=== PATIENT | male | born 1955 | race Two or more races ===

== ENCOUNTER 2020-10-06 11:41 | Emergency (ER) | payer MEDICARE, OTHER ==
[~2020-10-06] VITALS: Ht 177.8 cm; Wt 113.4 kg
[2020-10-06] MEDS ORDERED: IOHEXOL 300 MG/ML 100ML BOTTLE IJ ONE (12:05)
[2020-10-06 12:30] LABS: Basophils # (auto) 0.1 10 ^3/uL (0-0.2); Basophils % (auto) 0.3 % (0.0-2.0); Eosinophils # (auto) 0.5 10 ^3/uL (0-0.8); Eosinophils % (auto) 2.6 % (0.0-7.0); Hematocrit 41.5 % (41.0-53.0); Hemoglobin 13.9 g/dL (13.5-17.5); Lymphocytes # (auto) 4.2 10 ^3/uL (0.4-5.4); Lymphocytes % (auto) 21.8 % (10.0-50.0); Mean Corpuscular Hemoglobin 30.2 pg (28.0-32.0); Mean Corpuscular Hgb Conc. 33.6 g/dL (32.0-36.0); Mean Corpuscular Volume 89.8 fL (80.0-100.0); Monocytes # (auto) 0.9 10 ^3/uL (0-1.3); Monocytes % (auto) 4.7 % (0.0-12.0); Neutrophils # (auto) 13.8 10 ^3/uL (1.6-8.6); Neutrophils % (auto) 70.6 % (37.0-80.0); Nucleated Red Blood Cells % 0.2 %; Platelet Count (auto) 330 10^3/uL (140-450); Red Blood Cells 4.62 10^6/uL (4.5-5.90); Red Cell Distribution Width 13.5 % (11.8-14.3); White Blood Cell 19.5 10^3/uL (4.4-10.8)
[2020-10-06] MEDS ORDERED: ONDANSETRON HCL 4 MG/2 ML VIAL IV ONE (12:30)
[2020-10-06] MEDS ORDERED: MORPHINE SULFATE 4 MG/ML SYR/VIAL IV ONE (12:30)
[2020-10-06 12:47] LABS: Albumin 3.7 g/dL (3.4-5.0); Potassium 3.4 mmol/L (3.5-5.1)
[2020-10-06 12:50] LABS: BUN/Creatinine Ratio 12.3; Bilirubin, Total 0.6 mg/dL (0.2-1.0); Total Protein 7.1 g/dL (6.4-8.2)
[2020-10-06] MEDS ORDERED: HYDROmorphone HCL 2 MG/ML VL ONE (13:03)
[2020-10-06] MEDS ORDERED: HYDROmorphone HCL 2 MG/ML VL IV ONE (13:15)
[2020-10-06 14:10] VITALS: BP 93/57
== END 2020-10-06 14:25 | disposition short-term general hospital (02) ==
LOC: ER 11:41 → EDBD 11:41 → ER 14:25
DX: S52.511A Displaced fracture of right radial styloid process, initial encounter for closed fracture (principal); S32.019A Unspecified fracture of first lumbar vertebra, initial encounter for closed fracture; S32.029A Unspecified fracture of second lumbar vertebra, initial encounter for closed fracture; K57.92 Diverticulitis of intestine, part unspecified, without perforation or abscess without bleeding; R58 Hemorrhage, not elsewhere classified; E11.9 Type 2 diabetes mellitus without complications; I10 Essential (primary) hypertension; V43.52XA Car driver injured in collision with other type car in traffic accident, initial encounter; Y93.89 Activity, other specified; Y92.488 Other paved roadways as the place of occurrence of the external cause; Y99.8 Other external cause status
CPT/HCPCS: 29125; 36415; 70450; 71260; 72125; 73090; 73110; 74177; 80053; 85025; 86850; 86900; 86901; 93005; 96374; 96375; 99285; J1170; J2270; J2405; Q9967; 99291

== ENCOUNTER 2025-07-13 09:20 | Inpatient (IN) | payer MEDICARE ==
[~2025-07-13] VITALS: Ht 177.8 cm; Wt 83.5 kg
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
[2025-07-13 09:39] VITALS: PULSE 86; RESP 15; O2SAT 95
[2025-07-13] MEDS: MORPHINE SULFATE INJ 2 MG/ml SYRG IV ONE (09:53)
[2025-07-13] MEDS: ONDANSETRON HCL 4 MG/2 ML VIAL IV ONE (09:58)
--- NOTE | 2025-07-13 10:14 | DVH ---
INDICATION: sob TECHNIQUE: Frontal view of the chest. COMPARISON: None FINDINGS: . The heart and mediastinal contours are grossly unremarkable. There is no evidence of pleural disea se. The lungs are clear. The bony structures of the chest are intact without fracture. IMPRESSION: 1. No evidence of acute disease.
--- NOTE | 2025-07-13 10:15 | DVH ---
EXAM: XY L HUMERUS XRAY CLINICAL INDICATION: fx TECHNIQUE: XY L HUMERUS XRAY, 3v Comparison: L FOREARM XRAY on DOS: 10/06/20 FINDINGS/IMPRESSION: Possible displaced pathologic fracture mid left humerus. MRI with IV contrast recommended.
[2025-07-13 10:22] LABS: Hematocrit 40.0 % (41.0-53.0); Hemoglobin 14.0 g/dL (13.5-17.5); Mean Corpuscular Hemoglobin 33.0 pg (28.0-32.0); Mean Corpuscular Volume 94.0 fL (80.0-100.0); Nucleated Red Blood Cells % 0.1 %
[2025-07-13 10:31] LABS: Chloride 104 mmol/L (98-107); Sodium 140 mmol/L (136-145)
[2025-07-13 10:32] LABS: Anion Gap 11 (5-15); Carbon Dioxide 25 mmol/L (20-31)
[2025-07-13 10:33] LABS: Calcium 9.0 mg/dL (8.7-10.4)
[2025-07-13 10:36] LABS: Potassium 3.4 mmol/L (3.5-5.1)
[2025-07-13 10:37] LABS: BUN/Creatinine Ratio 7.8 (10.0-20.0)
[2025-07-13 10:38] LABS: Blood Urea Nitrogen 7 mg/dL (9-23); Glucose 229 mg/dL (74-106)
[2025-07-13] MEDS ORDERED: FAMO-12 PO (12:05)
[2025-07-13] MEDS ORDERED: ATOR10TA52 PO (12:05)
[2025-07-13] MEDS ORDERED: GLIP10TA9 PO (12:05)
[2025-07-13] MEDS ORDERED: ENAL1TAB48 PO (12:05)
[2025-07-13] MEDS ORDERED: DOCUSATE SOD 100 MG CAP PO PRN (12:15)
[2025-07-13] MEDS ORDERED: TEMAZEPAM 15 MG CAP PO PRN (12:15)
[2025-07-13] MEDS ORDERED: DEXTROSE (50%) 50ML SYRG IV PRN (12:15)
[2025-07-13] MEDS ORDERED: ACETAMINOPHEN 325 MG TAB PO PRN (12:15)
[2025-07-13] MEDS: SODIUM CHLORIDE 0.9% 1,000 ML IV SCH (12:33)
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
[2025-07-13 14:44] VITALS: BP 135/89; PULSE 82; RESP 18; TEMP 98.2; O2SAT 94
[2025-07-13] MEDS ORDERED: CHOL20002 PO (15:03)
[2025-07-13] MEDS ORDERED: IBUP-1455 PO (15:12)
--- NOTE | 2025-07-13 15:36 | DVHSR ---
APPROVED REPORT EXAM: LIMITED Two-dimensional and M-mode echocardiogram with Doppler and color Doppler. INDICATION Pre-Op RISK FACTORS Height: 70, Weight: 190 DIMENSIONS LVDd4.1 (3.8-5.7cm)LA (2D) (1.9-4.0cm)Aortic Root (2.0-3.7cm) LVDs2.9 (2.5-4.0cm)LA (MM) (1.9-4.0cm)Aortic Cusp Exc (1.5-2.0cm) EF (%) 57.0 (55-70%)Rt. Atrium (1.9-4.0cm)Asc. Aorta cm Mitral Valve MitralMitral Stenosis E wave0.75m/sMV Mean GR.mmHg A wave1.04m/sMV Peak GR.mmHg E/A ratio0.72D MVAcm2 DECEL [id number] 1/2 [id number] IVRTmsDop MVA3.77cm2 Aortic Valve Aortic ValveAortic Stenosis V11.04m/Rosalio Mean GR.4mmHg V21.42m/Rosalio Peak GR.8mmHg Other Information Technically limited study due to body habitus and patient position. Patient was unable to turn due t o broken left arm. Patient laying on his back sitting straight up during exam. Conclusion lvef 50-55% by visual estimate mild LVH RV not seen mild left atirum enlarged
[2025-07-13] MEDS: ONDANSETRON HCL 4 MG/2 ML VIAL IV PRN (16:03)
[2025-07-13] MEDS: MORPHINE SULFATE INJ 2 MG/ml SYRG IV PRN (16:03)
[2025-07-13 17:00] VITALS: BP 156/102; PULSE 81; RESP 24; TEMP 97.3; O2SAT 95
[2025-07-13] MEDS: InsuLIN REG 1unit/0.01ml Soln (100units/ml) SC SCH ×2 (17:00→21:00)
[2025-07-13] MEDS: ACCU-CHEK COMFORT CURVE STRIP VI SCH (17:00)
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
[2025-07-13 21:00] VITALS: BP 137/92; PULSE 79; RESP 18; TEMP 97.5; O2SAT 96
[2025-07-13] MEDS: ATORVASTATIN 20 MG TAB PO SCH (21:05)
[2025-07-13] MEDS: FAMOTIDINE 20 MG TAB PO SCH (21:05)
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
[2025-07-14] VITALS (8 sets, daily range): BP systolic 121–162; BP diastolic 67–102; PULSE 61–110; RESP 16–20; TEMP 97–98.5; O2SAT 92–96
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
[2025-07-14] MEDS: glipiZIDE 5 MG TAB PO SCH (06:19)
--- NOTE | 2025-07-14 08:04 | ECG ---
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
[2025-07-14 08:55] LABS: Hematocrit 39.6 % (41.0-53.0); Hemoglobin 13.9 g/dL (13.5-17.5); Mean Corpuscular Hemoglobin 33.3 pg (28.0-32.0); Mean Corpuscular Volume 94.9 fL (80.0-100.0); Nucleated Red Blood Cells % 0.1 %
[2025-07-14 09:07] LABS: Albumin 4.3 g/dL (3.2-4.8); Anion Gap 9 (5-15); BUN/Creatinine Ratio 8.4 (10.0-20.0); Bilirubin, Total 1.0 mg/dL (0.2-1.0); Calcium 9.2 mg/dL (8.7-10.4); Carbon Dioxide 26 mmol/L (20-31); Chloride 105 mmol/L (98-107); Sodium 140 mmol/L (136-145); Total Protein 6.3 g/dL (5.7-8.2)
[2025-07-14 09:10] LABS: Alanine Aminotransferase 83 U/L (7-40); Alkaline Phosphatase 146 U/L (46-116); Blood Urea Nitrogen 7 mg/dL (9-23); Glucose 161 mg/dL (74-106); Potassium 3.4 mmol/L (3.5-5.1)
[2025-07-14] MEDS: ENOXAPARIN SOD 40 MG/0.4 ML SYRINGE SC SCH (09:56)
[2025-07-14] MEDS: ENALAPRIL MALEATE 10 MG TAB PO SCH (10:00)
[2025-07-14] MEDS ORDERED: HYDR-4902 PO (13:48)
[2025-07-14] MEDS: HYDROcodone-ACET 5/325MG TAB PO PRN (17:09)
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
[2025-07-15] VITALS (8 sets, daily range): BP systolic 124–157; BP diastolic 87–99; PULSE 104–113; RESP 16–20; TEMP 97.7–98.5; O2SAT 93–96
[2025-07-15] MEDS: hydrALAZINE HCL 20 MG/ML VL IV PRN (01:15)
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
--- NOTE | 2025-07-15 10:15 | DVHDS2 ---
Discharge Summary Date of Admission Jul 13, 2025 at 12:01 Date of Discharge: Jul 14, 2025 Labs/Diagnostic Data: Laboratory Results Test 07/15/25 05:57 07/14/25 08:27 07/13/25 09:53 POC Glucose 218 mg/dl (70-106) White Blood Count 12.4 10^3/uL (4.4-10.8) Red Blood Count 4.17 10^6/uL (4.5-5.90) Hemoglobin 13.9 g/dL (13.5-17.5) Hematocrit 39.6 % (41.0-53.0) Mean Corpuscular Volume 94.9 fL (80.0-100.0) Mean Corpuscular Hemoglobin 33.3 pg (28.0-32.0) Mean Corpuscular Hemoglobin Concent 35.0 g/dL (32.0-36.0) Red Cell Distribution Width 13.5 % (11.8-14.3) Platelet Count 178 10^3/uL (140-450) Mean Platelet Volume 8.6 fL (6.9-10.8) Neutrophils (%) (Auto) 79.5 % (37.0-80.0) Lymphocytes (%) (Auto) 12.9 % (10.0-50.0) Monocytes (%) (Auto) 4.8 % (0.0-12.0) Eosinophils (%) (Auto) 2.6 % (0.0-7.0) Basophils (%) (Auto) 0.2 % (0.0-2.0) Neutrophils # (Auto) 9.8 10 ^3/uL (1.6-8.6) Lymphocytes # (Auto) 1.6 10 ^3/uL (0.4-5.4) Monocytes # (Auto) 0.6 10 ^3/uL (0-1.3) Eosinophils # (Auto) 0.3 10 ^3/uL (0-0.8) Basophils # (Auto) 0 10 ^3/uL (0-0.2) Nucleated Red Blood Cells 0.1 % Sodium Level 140 mmol/L (136-145) Potassium Level 3.4 mmol/L (3.5-5.1) Chloride Level 105 mmol/L (98-107) Carbon Dioxide Level 26 mmol/L (20-31) Anion Gap 9 (5-15) Blood Urea Nitrogen 7 mg/dL (9-23) Creatinine 0.83 mg/dL (0.700-1.30) Glomerular Filtration Rate Calc 93 mL/min (>90) BUN/Creatinine Ratio 8.4 (10.0-20.0) Serum Glucose 161 mg/dL (74-106) Calcium Level 9.2 mg/dL (8.7-10.4) Total Bilirubin 1.0 mg/dL (0.2-1.0) Aspartate Amino Transferase (AST) 40 U/L (13-40) Alanine Aminotransferase (ALT) 83 U/L (7-40) Alkaline Phosphatase 146 U/L (46-116) Total Protein 6.3 g/dL (5.7-8.2) Albumin 4.3 g/dL (3.2-4.8) Troponin I High Sensitivity 6 ng/L (</=54) Other Laboratory Tests 07/14/25 08:27 Final Diagnosis/Problems List left humerus pathological fx Discharge Disposition: Home Discharge Instruct/Medications Diet: Consistent carbohydrate Activity: See Comment Activity comment: left arm in sling Follow Up/Referral: f/u [facility] orthopedic surgeon Scheduled Atorvastatin Calcium (Atorvastatin Calcium), 1 TAB PO DAILY, (Reported) Cholecalciferol (Vitamin D3), 1 CAP PO DAILY, (Reported) Enalapril Maleate (Enalapril Maleate), 1 TAB PO DAILY, (Reported) Famotidine (Famotidine), 1 TAB PO BID, (Reported) Glipizide (Glipizide), 1 TAB PO QAM, (Reported) Ibuprofen Micronized (Ibuprofen), 1 TAB PO TID, (Reported) Scheduled PRN Hydrocodone-Acetaminophen (Hydrocodone Bitartrate/AC 5-325 mg), 1 TAB PO Q8HP PRN Discharge Statement: "Patient was advised to return to the ER or call 911 if any headaches, dizziness, shortness of breath, chest pain, abdominal pain, bleeding, fevers, or worsening of medical condition. Patient was counseled about treatment plan, medications, possible side effects, patientverbalized understanding. All questions were answered to the best of my ability. This discharge took greater then 30 minutes in planning, reviewing documentation, counseling the patient, and discussing with other team members." ASSESSMENT ASSESSMENT Assessment left humerus pathological fx CHARLA AGUSTIN NP Jul 15, 2025 10:15
--- NOTE | 2025-07-15 17:20 | DVH ---
CT LEFT LOWER EXTREMITY. HISTORY: Left humerous fracture COMPARISON: XY L HUMERUS XRAY on DOS: 07/13/25, L FOREARM XRAY on DOS: 10/06/20, R WRIST COMPLETE XRAY on DOS: 10/06/20 TECHNIQUE: Multiple axial CT images of the left lower extremity were obtained without intravenous con trast. Coronal and sagittal bone and soft tissue reformations were also obtained. One or more of the following radiation dose reduction techniques were used for this examination: automated exposure con trol, adjustment of the mA and/or kV according to patient size, use of iterative reconstruction techn ique. FINDINGS: Comminuted angulated but minimally displaced fracture mid left humerus. Subcutaneous edema Arterial detail is suboptimal for excluding dissection. IMPRESSION: 1. Comminuted minimally angled fracture mid left humerus.
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
[2025-07-16] VITALS (8 sets, daily range): BP systolic 118–155; BP diastolic 82–101; PULSE 98–118; RESP 16–20; TEMP 98–98.4; O2SAT 93–98
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
[2025-07-16] MEDS: EZ PAQUE SUSP 12OZ BTL ONE (12:30)
[2025-07-16] MEDS: GADOTERATE MEG 10 MMOL/20ml INJ (0.5MMOL/ml) IV ONE (12:31)
--- NOTE | 2025-07-16 15:09 | DVH ---
CLINICAL INFORMATION: Lytic lesion. Pathologic fracture. TECHNIQUE: Following the intravenous administration of 25.5 mCi technetium 99m-MDP, 3-phase bone sca n was performed. Immediate flow images of the left humerus were obtained in the anterior and posterio r projections. Blood pool images and 3 hour delayed images of the left humerus were also obtained in the anterior and posterior projections. COMPARISON: CT dated 07/15/2025 and radiographs of the left humerus dated 07/13/2025. FINDINGS: No asymmetric increased uptake is seen associated with the fracture in the left mid humeral diaphysis is seen on the immediate flow images or blood pool images. Delayed images demonstrate expe cted uptake adjacent to the fracture site associated secondary to the fracture. There is also promine nt uptake in the right humeral head and adjacent right acromion, which is nonspecific, may be due to arthritic changes. There is a focal area of increased uptake in a right anterior 1st rib near the cos tochondral junction on the delayed images. IMPRESSION: 1. There is focal uptake in the left mid humerus adjacent to the fracture site on the delayed images only with no asymmetric increased activity in this location on the immediate flow or blood pool image s. The fracture is consistent with a pathologic fracture based on the lytic lesion, suspected maligna ncy seen on CT and radiographs adjacent to the location of the fracture site. 2. Areas of increased activity on the delayed images are seen involving an anterior right rib as well as the right humeral head and right acromion, of uncertain significance, with the increased uptake i n the right shoulder possibly due to arthritic changes, and the right anterior rib uptake possibly se en with costochondritis or rib fracture. Other etiologies, including malignancy can not be excluded i n these locations. No obvious lesion in the right shoulder visualized on recent chest radiograph. Cor relate with clinical findings.
[2025-07-16] MEDS: HYDROmorphone HCL 2 MG/ML VL/or syr IV ONE (15:17)
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
[2025-07-17] VITALS (9 sets, daily range): BP systolic 138–152; BP diastolic 86–108; PULSE 103–112; RESP 18–20; TEMP 97.9–98.2; O2SAT 92–97
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
[2025-07-17 09:39] LABS: Chloride 102 mmol/L (98-107); Sodium 141 mmol/L (136-145)
[2025-07-17 09:40] LABS: Anion Gap 8 (5-15); Calcium 9.5 mg/dL (8.7-10.4); Carbon Dioxide 31 mmol/L (20-31)
[2025-07-17 09:45] LABS: BUN/Creatinine Ratio 10.6 (10.0-20.0); Blood Urea Nitrogen 10 mg/dL (9-23)
[2025-07-17] MEDS: OMNIPAQUE 12mg/ml 500ml ORAL SOLUTION PO ONE (09:50)
[2025-07-17 09:54] LABS: Glucose 175 mg/dL (74-106); Potassium 3.4 mmol/L (3.5-5.1)
[2025-07-17] MEDS: IOHEXOL 300 MG/ML 100ML BOTTLE IJ ONE (12:19)
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
[2025-07-18] VITALS (7 sets, daily range): BP systolic 129–169; BP diastolic 85–102; PULSE 100–108; RESP 17–20; TEMP 97.5–98.1; O2SAT 93–95
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
[2025-07-19] VITALS (7 sets, daily range): BP systolic 132–157; BP diastolic 89–111; PULSE 63–107; RESP 17–20; TEMP 97.7–98.4; O2SAT 94–98
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
[2025-07-19 11:07] LABS: Prostate Specific Antigen <0.1 ng/mL (0.0-4.0)
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
[2025-07-19 16:01] LABS: Hematocrit 40.6 % (41.0-53.0); Hemoglobin 14.0 g/dL (13.5-17.5); Mean Corpuscular Hemoglobin 32.6 pg (28.0-32.0); Mean Corpuscular Volume 94.6 fL (80.0-100.0); Nucleated Red Blood Cells % 0.1 %
[2025-07-19 16:11] LABS: Albumin 4.4 g/dL (3.2-4.8); Anion Gap 8 (5-15); BUN/Creatinine Ratio 11.3 (10.0-20.0); Bilirubin, Total 1.1 mg/dL (0.2-1.0); Blood Urea Nitrogen 11 mg/dL (9-23); Calcium 9.4 mg/dL (8.7-10.4); Carbon Dioxide 27 mmol/L (20-31); Chloride 101 mmol/L (98-107); Magnesium 2.1 mg/dL (1.6-2.6); Potassium 4.0 mmol/L (3.5-5.1); Total Protein 6.4 g/dL (5.7-8.2)
[2025-07-19 16:12] LABS: Alanine Aminotransferase 82 U/L (7-40); Alkaline Phosphatase 137 U/L (46-116); Glucose 262 mg/dL (74-106); Sodium 136 mmol/L (136-145)
[2025-07-20] VITALS (7 sets, daily range): BP systolic 133–156; BP diastolic 78–99; PULSE 97–104; RESP 17–20; TEMP 97.7–98.8; O2SAT 94–98
[2025-07-20 08:07] LABS: Prostate Specific Antigen <0.1 ng/mL (0.0-4.0)
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
[2025-07-20 14:38] LABS: Hematocrit 39.2 % (41.0-53.0); Hemoglobin 13.7 g/dL (13.5-17.5); Mean Corpuscular Hemoglobin 32.9 pg (28.0-32.0); Mean Corpuscular Volume 94.4 fL (80.0-100.0); Nucleated Red Blood Cells % 0.0 %
[2025-07-20 14:55] LABS: Albumin 4.2 g/dL (3.2-4.8); Anion Gap 7 (5-15); BUN/Creatinine Ratio 9.6 (10.0-20.0); Blood Urea Nitrogen 11 mg/dL (9-23); Calcium 9.2 mg/dL (8.7-10.4); Carbon Dioxide 29 mmol/L (20-31); Chloride 102 mmol/L (98-107); Potassium 4.1 mmol/L (3.5-5.1); Sodium 138 mmol/L (136-145); Total Protein 6.1 g/dL (5.7-8.2)
[2025-07-20 14:56] LABS: Alanine Aminotransferase 75 U/L (7-40); Alkaline Phosphatase 129 U/L (46-116); Bilirubin, Total 1.1 mg/dL (0.2-1.0); Glucose 248 mg/dL (74-106)
[2025-07-20] MEDS: PIPERACILLIN-TAZOB 3.375GM 100 ML IV SCH (15:27)
[2025-07-21] VITALS (7 sets, daily range): BP systolic 111–153; BP diastolic 76–92; PULSE 94–104; RESP 16–18; TEMP 97.7–98.4; O2SAT 93–96
[2025-07-21 08:07] LABS: Immunoglobulin A 447 mg/dL (61-437); Immunoglobulin G, Serum 537 mg/dL (603-1613); Immunoglobulin M 11 mg/dL (15-143)
[2025-07-21 11:07] LABS: Kappa Lite Chain Free Serum 8.1 mg/L (3.3-19.4)
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
[2025-07-22] VITALS (7 sets, daily range): BP systolic 104–144; BP diastolic 77–95; PULSE 78–108; RESP 16–20; TEMP 97.8–98.4; O2SAT 94–97
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
[2025-07-22] MEDS: HYDROcodone-ACET 5/325MG TAB PO PRN (22:35)
[2025-07-23] VITALS (8 sets, daily range): BP systolic 125–143; BP diastolic 90–97; PULSE 99–107; RESP 18–20; TEMP 97.8–98.2; O2SAT 94–97
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
[2025-07-24] VITALS (8 sets, daily range): BP systolic 116–138; BP diastolic 77–91; PULSE 96–111; RESP 17–18; TEMP 97.6–98.8; O2SAT 94–99
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
[2025-07-25] VITALS (7 sets, daily range): BP systolic 115–146; BP diastolic 79–89; PULSE 95–111; RESP 17–20; TEMP 97.5–98.7; O2SAT 93–96
[2025-07-25 12:11] LABS: Hematocrit 40.8 % (41.0-53.0); Hemoglobin 14.0 g/dL (13.5-17.5); Mean Corpuscular Hemoglobin 32.7 pg (28.0-32.0); Mean Corpuscular Volume 95.2 fL (80.0-100.0); Nucleated Red Blood Cells % 0.0 %
[2025-07-25 12:29] LABS: Albumin 4.4 g/dL (3.2-4.8); Anion Gap 8 (5-15); BUN/Creatinine Ratio 13.3 (10.0-20.0); Bilirubin, Total 1.0 mg/dL (0.2-1.0); Blood Urea Nitrogen 14 mg/dL (9-23); Calcium 9.9 mg/dL (8.7-10.4); Carbon Dioxide 28 mmol/L (20-31); Chloride 102 mmol/L (98-107); Potassium 4.0 mmol/L (3.5-5.1); Sodium 138 mmol/L (136-145); Total Protein 6.9 g/dL (5.7-8.2)
[2025-07-25 12:30] LABS: Alanine Aminotransferase 79 U/L (7-40); Alkaline Phosphatase 215 U/L (46-116); Glucose 148 mg/dL (74-106)
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
[2025-07-26] VITALS (7 sets, daily range): BP systolic 111–133; BP diastolic 81–91; PULSE 86–118; RESP 16–20; TEMP 97.1–98.1; O2SAT 92–100
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
[2025-07-27] VITALS (8 sets, daily range): BP systolic 106–134; BP diastolic 70–90; PULSE 61–102; RESP 17–20; TEMP 97–98.9; O2SAT 94–98
[2025-07-27 09:13] LABS: Hematocrit 42.5 % (41.0-53.0); Hemoglobin 14.6 g/dL (13.5-17.5); Mean Corpuscular Hemoglobin 32.8 pg (28.0-32.0); Mean Corpuscular Volume 95.7 fL (80.0-100.0); Nucleated Red Blood Cells % 0.1 %
[2025-07-27 09:28] LABS: Albumin 4.6 g/dL (3.2-4.8); Anion Gap 8 (5-15); BUN/Creatinine Ratio 12.4 (10.0-20.0); Bilirubin, Total 1.1 mg/dL (0.2-1.0); Blood Urea Nitrogen 13 mg/dL (9-23); Calcium 9.6 mg/dL (8.7-10.4); Carbon Dioxide 29 mmol/L (20-31); Chloride 101 mmol/L (98-107); Magnesium 2.3 mg/dL (1.6-2.6); Potassium 4.3 mmol/L (3.5-5.1); Sodium 138 mmol/L (136-145); Total Protein 7.3 g/dL (5.7-8.2)
[2025-07-27 09:30] LABS: Alanine Aminotransferase 107 U/L (7-40); Alkaline Phosphatase 250 U/L (46-116); Glucose 153 mg/dL (74-106)
[2025-07-28] VITALS (8 sets, daily range): BP systolic 113–141; BP diastolic 78–91; PULSE 87–111; RESP 17–20; TEMP 97–98.6; O2SAT 95–97
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
[2025-07-29] VITALS (7 sets, daily range): BP systolic 108–127; BP diastolic 73–88; PULSE 94–100; RESP 17–20; TEMP 36.5; O2SAT 95–97
[2025-07-29 05:08] LABS: Albumin 3.2 g/dL (2.9-4.4); Alpha-1-Globulin 0.2 g/dL (0.0-0.4); Alpha-2-Globulin 0.8 g/dL (0.4-1.0); Gamma Globulin 0.5 g/dL (0.4-1.8)
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
== END 2025-07-29 18:50 | disposition short-term general hospital (02) | DRG 563 ==
LOC: ER 09:20 → EDUNIT# 09:20 → EDBD 09:20 → OVERFLOW 12:01 → WEST WING 14:29
PROVIDERS: ADMIT Nurse Practitioner; ATTEND Nurse Practitioner
DX: S42.352A Displaced comminuted fracture of shaft of humerus, left arm, initial encounter for closed fracture (principal); R65.10 Systemic inflammatory response syndrome (SIRS) of non-infectious origin without acute organ dysfunction; E11.65 Type 2 diabetes mellitus with hyperglycemia; I10 Essential (primary) hypertension; Z68.31 Body mass index [BMI] 31.0-31.9, adult; E66.9 Obesity, unspecified; E78.5 Hyperlipidemia, unspecified; M79.18 Myalgia, other site; Z87.891 Personal history of nicotine dependence; Z85.46 Personal history of malignant neoplasm of prostate; Z79.84 Long term (current) use of oral hypoglycemic drugs; Z88.8 Allergy status to other drugs, medicaments and biological substances; V49.88XA Car occupant (driver) (passenger) injured in other specified transport accidents, initial encounter; W22.8XXA Striking against or struck by other objects, initial encounter; Y93.89 Activity, other specified; Y92.488 Other paved roadways as the place of occurrence of the external cause; Y99.8 Other external cause status
CPT/HCPCS: 36415; 71045; 71260; 73060; 73201; 74177; 78315; 80048; 80053; 82105; 82232; 82378; 82784; 82962; 83036; 83521; 83615; 83735; 84154; 84155; 84165; 84484; 85025; 86301; 86334; 93005; 93306; 96374; 96375; G0378; J1815; J2405; J2543